=== PATIENT | female | born 1960 | race Caucasian/White ===

== ENCOUNTER → 2020-07-13 | Outpatient (CLI) | payer OTHER | LOC: PLD 09:35 → LAB SHORT 09:35 | DX: L98.9 Disorder of the skin and subcutaneous tissue, unspecified (principal); Z88.1 Allergy status to other antibiotic agents; Z91.011 Allergy to milk products | CPT/HCPCS: 88305; 88312; 88313 ==

== ENCOUNTER → 2022-05-15 | Outpatient (CLI) | payer OTHER | LOC: LAB SHORT 11:22 → LAB 11:22 | DX: D48.5 Neoplasm of uncertain behavior of skin (principal) | CPT/HCPCS: 88305 ==

== ENCOUNTER → 2022-10-04 | Outpatient (CLI) | payer OTHER ==
[2022-10-04 08:43] LABS: Albumin, Blood 3.8 g/dL (3.4-5.0); Albumin/Globulin Ratio 0.9 (0.8-1.8); Bilirubin, Total 0.7 mg/dL (0.1-1.0); Calcium, Blood 9.2 mg/dL (8.5-10.1); Creatinine, Blood 0.68 mg/dL (0.40-1.00); Globulin, Blood 4.1 g/dL (2.2-4.0); Potassium, Blood 3.5 mmol/L (3.5-5.5); Thyroid Stimulating Hormone 3.59 uIU/mL (0.360-4.800); Total Protein, Blood 7.9 g/dL (6.4-8.2)
== END ==
LOC: LAB SHORT 07:13
PROVIDERS: Physician Assistant
DX: E03.9 Hypothyroidism, unspecified (principal); I10 Essential (primary) hypertension
CPT/HCPCS: 36415; 80053; 84443

== ENCOUNTER → 2022-10-16 | Outpatient (CLI) | payer OTHER ==
[2022-10-17 20:07] LABS: SJOGREN'S ANTI-SS-A <0.2 AI (0.0-0.9); SJOGREN'S ANTI-SS-B <0.2 AI (0.0-0.9)
== END ==
LOC: LAB 13:59 → LAB SHORT 13:59
PROVIDERS: Physician Assistant
DX: H04.129 Dry eye syndrome of unspecified lacrimal gland (principal); R68.2 Dry mouth, unspecified
CPT/HCPCS: 36415; 86235

== ENCOUNTER → 2023-12-06 | Outpatient (CLI) | payer BC ==
[2023-12-06 08:43] LABS: BASOPHILS ABSOLUTE AUTO 0.04 K/mm3 (0.00-0.23); BASOPHILS PERCENT AUTO 1 % (0-2); EOSINOPHILS ABSOLUTE AUTO 0.14 K/mm3 (0.00-0.68); EOSINOPHILS PERCENT AUTO 2 % (0-6); Hematocrit 43.3 % (33.0-51.0); Hemoglobin 15.1 g/dL (11.5-16.0); IMMATURE GRAN ABSOLUTE AUTO 0.02 K/mm3 (0.00-0.10); IMMATURE GRAN PERCENT AUTO 0 % (0-1); LYMPHOCYTES ABSOLUTE AUTO 2.28 K/mm3 (0.84-5.20); LYMPHOCYTES PERCENT AUTO 32 % (21-46); MONOCYTES ABSOLUTE AUTO 0.56 K/mm3 (0.16-1.47); MONOCYTES PERCENT AUTO 8 % (4-13); Mean Corpuscular HGB 33.9 pg (26.0-34.0); Mean Corpuscular HGB Conc 34.9 g/dL (31.5-36.5); Mean Corpuscular Volume 97 fL (80-100); Mean Platelet Volume 8.3 fL (9.1-12.4); NEUTROPHILS ABSOLUTE AUTO 3.99 K/mm3 (1.96-9.15); NEUTROPHILS PERCENT AUTO 57 % (41-73); Platelet Count 271 K/mm3 (150-400); RDW Standard Deviation 42.2 fL (35.1-46.3); Red Blood Cell Count 4.46 M/mm3 (3.80-5.20); White Blood Cell Count 7.03 K/mm3 (4.00-11.30)
[2023-12-06 08:53] LABS: Albumin/Globulin Ratio 0.9 (0.8-1.8); Bilirubin, Total 0.6 mg/dL (0.1-1.0); Bun/Creatinine Ratio 14.8 (12.0-20.0); Calcium, Blood 9.5 mg/dL (8.5-10.1); Creatinine, Blood 0.81 mg/dL (0.40-1.00); Globulin, Blood 4.4 g/dL (2.2-4.0); Potassium, Blood 4.1 mmol/L (3.5-5.5); Total Protein, Blood 8.4 g/dL (6.4-8.2)
== END | disposition home or self-care (01) ==
LOC: LAB 08:38 → LAB SHORT 08:38
PROVIDERS: Physician Assistant
DX: R10.32 Left lower quadrant pain (principal)
CPT/HCPCS: 80053; 85025